=== PATIENT | female | born 1975 | race Asian ===

== ENCOUNTER 2023-10-12 08:20 | Day surgery (SDC) | payer OTHER ==
[2023-10-11 10:43] VITALS: BMI 36.8
[2023-10-12] MEDS ORDERED: Lidocaine 1% PF 5 ML VIAL ONE (10:05)
[2023-10-12] MEDS ORDERED: PROPOFOL 20 ML ONE ×2 (10:05→10:19)
== END 2023-10-12 13:00 | disposition home or self-care (01) ==
LOC: CSHSDC 08:20
PROVIDERS: ATTEND Surgery
PROC: 0DJD8ZZ Inspection of Lower Intestinal Tract, Via Natural or Artificial Opening Endoscopic (ICD-10-PCS; principal; 2023-10-12)
DX: Z12.11 Encounter for screening for malignant neoplasm of colon (principal); I10 Essential (primary) hypertension; E78.5 Hyperlipidemia, unspecified; G47.33 Obstructive sleep apnea (adult) (pediatric); Z79.899 Other long term (current) drug therapy
CPT/HCPCS: J2704